=== PATIENT | female | born 1990 | race Caucasian/White ===

== ENCOUNTER 2018-04-30 20:52 | Emergency (ER) | payer OTHER ==
[~2018-04-30] VITALS: Ht 165.1 cm; Wt 65.8 kg
[2018-04-30] MEDS ORDERED: VALIUM5 MG PO (21:19)
[2018-04-30] MEDS ORDERED: MOBIC15 MG PO (21:19)
[2018-04-30 21:32] VITALS: BP 129/66
== END 2018-04-30 21:33 | disposition home or self-care (01) ==
LOC: ER 20:52
DX: S16.1XXA Strain of muscle, fascia and tendon at neck level, initial encounter (principal); R51 Headache; R11.2 Nausea with vomiting, unspecified; R41.0 Disorientation, unspecified; M25.511 Pain in right shoulder; F17.210 Nicotine dependence, cigarettes, uncomplicated; V89.2XXA Person injured in unspecified motor-vehicle accident, traffic, initial encounter; Y92.89 Other specified places as the place of occurrence of the external cause; Y93.89 Activity, other specified; Y99.8 Other external cause status